=== PATIENT | female | born 1975 | race Caucasian/White ===

== ENCOUNTER 2019-03-15 07:30 | Inpatient (IN) | payer MEDICAID ==
[~2019-03-15] VITALS: Ht 152.4 cm; Wt 68.9 kg
[2019-03-15] MEDS ORDERED: LR 1,000 ML IV ONE (10:24)
[2019-03-15] MEDS ORDERED: CEFAZOLIN 2 GM IVPB PREMIX 50 ML IV ONE (10:30)
[2019-03-15 10:55] LABS: BASOPHILS % (AUTO) 0.4 % (0.0-2.0); EOSINOPHILS % (AUTO) 0.5 % (0.0-4.0); HEMATOCRIT 39.3 % (36-48); HEMOGLOBIN 13.4 g/dL (12.0-16.0); LYMPHOCYTES % (AUTO) 19.2 % (20.5-51.5); MEAN CORPUSCULAR HEMOGLOBIN 33 pg (27-31); MEAN CORPUSCULAR HGB CONC 34 % (32-36); MEAN CORPUSCULAR VOLUME 97 fL (79.0-98.0); MONOCYTES # (AUTO) 0.4 K/uL (0.0-1.0); MONOCYTES % (AUTO) 8.1 % (1.7-9.3); NEUTROPHILS # (AUTO) 3.8 K/uL (1.8-7.7); NEUTROPHILS % (AUTO) 71.8 % (40.0-70.0); PLATELET COUNT (AUTO) 189 K/uL (130-430); RED BLOOD CELL COUNT(AUTO) 4.06 MIL/uL (4.2-6.2); RED CELL DISTRIBUTION WIDTH 14.7 % (9.0-15.0); WHITE BLOOD COUNT (AUTO) 5.3 K/uL (4.8-10.8)
[2019-03-15 12:06] LABS: BILIRUBIN,URINE NEGATIVE (NEGATIVE); CLARITY/URINE HAZY (CLEAR); COLOR,URINE YELLOW (YELLOW); GLUCOSE,URINE NEGATIVE (NEGATIVE); KETONES,URINE NEGATIVE (NEGATIVE); LEUKOCYTE ESTERASE ,URINE NEGATIVE (NEGATIVE); NITRITE, URINE NEGATIVE (NEGATIVE); PROTEIN URINE NEGATIVE (NEGATIVE); UROBILINOGEN,URINE 0.2 (0.2-1.0)
[2019-03-15 12:12] LABS: BLOOD, URINE TRACE (NEGATIVE)
[2019-03-15 12:30] LABS: BACTERIA,URINE RARE /HPF (None Seen); WBC,URINE 0-3 /HPF (0-3)
[2019-03-15 12:31] LABS: MUCUS,URINE 1+ /LPF (None Seen)
[2019-03-15 17:40] VITALS: BP_SYST 109
[2019-03-15] MEDS ORDERED: FLU VACC QS2019-20 36MOS UP/PF 60 MCG/0.5 ML SYRINGE I.M. PRN (17:45)
[2019-03-15] MEDS ORDERED: BUPIVACAINE /DEX PF 0.75% SPINAL 2 ML AMP INJ ONE (18:10)
[2019-03-15] MEDS ORDERED: NS IRRIG SOLN 1000 ML IR ONE (18:10)
[2019-03-15] MEDS ORDERED: ONDANSETRON HCL 4 MG/2 ML VIAL IVP ONE (18:10)
[2019-03-15] MEDS ORDERED: LR 1,000 ML IV.SOLN IV ONE (18:10)
[2019-03-15] MEDS ORDERED: MORPHINE SULFATE 10MG/10ML PF AMP EP ONE (18:10)
[2019-03-15] MEDS ORDERED: OXYTOCIN 10 UNIT/ML VIAL IV ONE (18:10)
[2019-03-15] MEDS ORDERED: LR 1,000 ML IV SCH ×2 (18:53→23:33)
[2019-03-15] MEDS ORDERED: NALOXONE HCL 1 MG in NACL 0.9% 1,000 ML IV PRN ×4 (18:53)
[2019-03-15] MEDS ORDERED: MEPERIDINE HCL/PF 25 MG/ML DISP.SYRIN IVP PRN ×2 (19:00)
[2019-03-15] MEDS ORDERED: DIPHENHYDRAMINE HCL 50 MG CAPSULE PO PRN (19:00)
[2019-03-15] MEDS ORDERED: NALOXONE HCL 0.4 MG/ML AMP (NARCAN) IVP PRN ×3 (19:00)
[2019-03-15] MEDS ORDERED: KETOROLAC TROMETHAMINE 60 MG/2 ML VIAL IM PRN (19:00)
[2019-03-15] MEDS ORDERED: HYDROmorphone 1 MG INJ. 1 MG/ML AMPUL IVP PRN (19:00)
[2019-03-15] MEDS ORDERED: HYDROmorphone 2 MG/ML VIAL IVP PRN ×2 (19:00)
[2019-03-15] MEDS ORDERED: ONDANSETRON HCL 4 MG/2 ML VIAL IVP PRN (19:00)
[2019-03-15] MEDS ORDERED: DIPHENHYDRAMINE INJ 50 MG/ML VIAL IVP PRN (19:00)
[2019-03-15 19:15] VITALS: BP_SYST 114
[2019-03-15] MEDS ORDERED: TEMAZEPAM 15 MG CAPSULE PO PRN (21:00)
[2019-03-15] MEDS ORDERED: OXYTOCIN/0.9 % SODIUM CHLORIDE 1,000 ML IV ONE (23:33)
[2019-03-15] MEDS ORDERED: HYDROcodone/ACETAMIN 5-325 MG TAB (NORCO/ VICODIN) PO PRN (23:45)
[2019-03-15] MEDS ORDERED: DIPH-TET-PERTUS Vaccine 0.5 ML VIAL (ADACEL) I.M. PRN (23:45)
[2019-03-15] MEDS ORDERED: OXYCODONE/ACETAMINOPHEN 5-325 TABLET PO PRN (23:45)
[2019-03-15] MEDS ORDERED: LANOLIN 7 GM OINT. TP PRN (23:45)
[2019-03-16] MEDS: CEFAZOLIN 1 GM IVPB PREMIX 50 ML IV SCH ×3 (00:10→11:50)
[2019-03-16 07:03] LABS: BASOPHILS % (AUTO) 0.2 % (0.0-2.0); HEMATOCRIT 34.2 % (36-48); HEMOGLOBIN 11.8 g/dL (12.0-16.0); LYMPHOCYTES # (AUTO) 0.8 K/uL (1.0-5.5); LYMPHOCYTES % (AUTO) 8.3 % (20.5-51.5); MEAN CORPUSCULAR HEMOGLOBIN 34 pg (27-31); MEAN CORPUSCULAR HGB CONC 34 % (32-36); MEAN CORPUSCULAR VOLUME 98 fL (79.0-98.0); MONOCYTES # (AUTO) 0.4 K/uL (0.0-1.0); MONOCYTES % (AUTO) 4.7 % (1.7-9.3); NEUTROPHILS # (AUTO) 8.2 K/uL (1.8-7.7); NEUTROPHILS % (AUTO) 86.8 % (40.0-70.0); PLATELET COUNT (AUTO) 166 K/uL (130-430); RED CELL DISTRIBUTION WIDTH 14.7 % (9.0-15.0); WHITE BLOOD COUNT (AUTO) 9.5 K/uL (4.8-10.8)
[2019-03-16] MEDS: DOCUSATE SODIUM 100 MG CAPSULE PO PRN ×2 (11:50→20:29)
[2019-03-16] MEDS: SIMETHICONE 80 MG TAB.CHEW PO PRN ×3 (11:50→20:29)
[2019-03-16] MEDS: OXYCODONE/ACETAMINOPHEN 5-325 TABLET PO PRN ×2 (11:51→17:58)
[2019-03-16] MEDS: IBUPROFEN 600 MG TABLET PO SCH ×3 (11:51→23:30)
[2019-03-17] MEDS: IBUPROFEN 600 MG TABLET PO SCH ×3 (05:56→17:54)
[2019-03-17] MEDS: DOCUSATE SODIUM 100 MG CAPSULE PO PRN ×2 (05:56→17:53)
[2019-03-17] MEDS: OXYCODONE/ACETAMINOPHEN 5-325 TABLET PO PRN (05:56)
[2019-03-17] MEDS: SIMETHICONE 80 MG TAB.CHEW PO PRN ×2 (12:54→17:53)
[2019-03-17] MEDS: SENNOSIDES/DOCUSATE SODIUM 1 TAB TABLET(SENOKOT-S) PO PRN (17:53)
[2019-03-18] MEDS: IBUPROFEN 600 MG TABLET PO SCH ×4 (06:36→17:24)
[2019-03-18] MEDS: SIMETHICONE 80 MG TAB.CHEW PO PRN ×2 (12:29→17:23)
[2019-03-18] MEDS: DOCUSATE SODIUM 100 MG CAPSULE PO PRN ×2 (17:23)
[2019-03-18] MEDS: SENNOSIDES/DOCUSATE SODIUM 1 TAB TABLET(SENOKOT-S) PO PRN (17:23)
== END 2019-03-18 18:03 | disposition home or self-care (01) | DRG 540 ==
LOC: SPU 10:10
PROVIDERS: ADMIT Obstetrics & Gynecology; ATTEND Obstetrics & Gynecology
PROC: 10D00Z1 Extraction of Products of Conception, Low, Open Approach (ICD-10-PCS; principal; 2019-03-15 12:30)
DX: O34.13 Maternal care for benign tumor of corpus uteri, third trimester (principal); R71.0 Precipitous drop in hematocrit; O34.211 Maternal care for low transverse scar from previous cesarean delivery; D25.9 Leiomyoma of uterus, unspecified; Z37.0 Single live birth; Z3A.39 39 weeks gestation of pregnancy
CPT/HCPCS: 36415; 81000-TC; 85025; 86592; 86886; 86900; 86901; 90715; 94760; J0690; J2274; J2405; J2590; J3490; J7120; Q2037